=== PATIENT | female | born 1990 | race African-American/Black ===

== ENCOUNTER 2018-10-03 00:39 | Inpatient (IN) ==
[2018-10-03 00:59] LABS: URINE SOURCE VOIDED
[2018-10-03 01:04] LABS: BILIRUBIN URINE NEGATIVE (NEGATIVE); BLOOD URINE NEGATIVE (NEGATIVE); CLARITY CLEAR (CLEAR); COLOR YELLOW; GLUCOSE URINE NEGATIVE (NEGATIVE); KETONE URINE NEGATIVE (NEGATIVE); LEUKOCYTES URINE 1+ (NEGATIVE); NITRITE URINE NEGATIVE (NEGATIVE); PROTEIN URINE NEGATIVE (NEGATIVE); SP GRAVITY URINE 1.005; UROBILINOGEN URINE NORMAL
[2018-10-03 01:19] LABS: UR AMPHETAMINES QUAL NONE DETECTED (NONE DETECT); UR BARBITUATES QUAL NONE DETECTED (NONE DETECT); UR BENZODIAZEPIN QUAL NONE DETECTED (NONE DETECT); UR CANNABINOIDS QUAL NONE DETECTED (NONE DETECT); UR COCAINE QUAL NONE DETECTED (NONE DETECT); UR METHADONE QUAL NONE DETECTED (NONE DETECT); UR METHAMPHETAMINE QUAL NONE DETECTED (NONE DETECT); UR OPIATES QUAL NONE DETECTED (NONE DETECT); UR OXYCODONE QUAL NONE DETECTED (NONE DETECT); UR PCP QUAL NONE DETECTED (NONE DETECT); UR PROPOXYPHENE QUAL NONE DETECTED (NONE DETECT); UR TCA QUAL NONE DETECTED (NONE DETECT)
[2018-10-03] MEDS: STADOL IV PRN ×3 (02:05→09:14)
[2018-10-03] MEDS: LR 1,000 ML IV SCH ×5 (02:05→13:07)
--- NOTE | 2018-10-03 08:23 | HISTORY AND PHYSICAL ---
ADMITTING DIAGNOSIS: Thirty-nine week with prolonged latent phase. HISTORY OF PRESENT ILLNESS: Vivien is a 28-year-old primigravid black single female followed since 8 weeks gestation initially in [place] and transferring to [place] at 23 weeks gestation, presenting with onset of painful irregular contractions since about 2000 hours. 10/02/2018, without satisfactory response to hydration, rest and Stadol analgesia doses x2 overnight. Cervical exam has been compounded by low station, intolerance of exam, and difficulty palpating the cervix. heart rate tracing has been category 1 without deceleration. PAST MEDICAL/SOCIAL/FAMILY HISTORY: They are listed on the record. COURSE AND SUMMARY: GBS negative, B positive, rubella immune. Others negative including GC, Chlamydia, hepatitis B, RPR, and GBS present, Trichomonas treated with negative test of cure. PHYSICAL EXAMINATION: Exam at this time includes stable vitals and afebrile temperature. She is drowsy from a recent Stadol dose at 0500 hours. ASSESSMENT: 39 weeks, prolonged latent phase. PLAN: I discussed management options and the importance of spontaneous labor especially in a 1st without medical indications for augmentation. She is agreeable to light diet, ambulation and re-examination after 2 to 3 hours of ambulation.
[2018-10-03] MEDS ORDERED: KEFZOL 1 GM/D5W 1 GM/50 ML IVPB IV PRN (10:06)
[2018-10-03] MEDS ORDERED: REGLAN PO ONE (10:06)
[2018-10-03] MEDS ORDERED: PEPCID IV PRN (10:06)
[2018-10-03] MEDS ORDERED: ZOFRAN IV PRN (10:06)
[2018-10-03] MEDS ORDERED: TYLENOL PO PRN (10:06)
[2018-10-03] MEDS ORDERED: STADOL IV PRN (10:06)
[2018-10-03] MEDS ORDERED: AMPICILLIN 2 GM/NS 2 GM/100 ML IVPB IV ONE (10:06)
[2018-10-03] MEDS ORDERED: PEPCID PO PRN (10:06)
[2018-10-03] MEDS ORDERED: PEPCID PO ONE (10:06)
[2018-10-03] MEDS ORDERED: PITOCIN 30 UNITS/NS 30 UNIT/500 ML IV.SOLN IV SCH ×2 (10:15→18:15)
[2018-10-03] MEDS ORDERED: SODIUM CHLORIDE 0.9% INJ SCH (10:15)
--- NOTE | 2018-10-03 10:26 | OB/GYN PROGRESS NOTE ---
Progress Note OB - . Patient Problems: Current Active Problems Problem Status Onset Active labor at term Acute Group B streptococcal carriage complicating Acute OB Progress Note: Vital Signs - 24 hr 10/03/18 00:42 10/03/18 07:07 Temperature 97.6 F 96.5 F L Pulse Rate 74 71 Respiratory Rate 18 14 Blood Pressure 110/72 117/75 O2 Sat by Pulse Oximetry 100 100 Laboratory Results - last 24 hr 10/03/18 10/03/18 00:00 00:00 Urine Source VOIDED Urine Color YELLOW Urine Clarity CLEAR Urine pH 8.0 Ur Specific [place] 1.005 Urine Protein NEGATIVE Urine Ketones NEGATIVE Urine Blood NEGATIVE Urine Nitrite NEGATIVE Urine Bilirubin NEGATIVE Urine Urobilinogen NORMAL Urine WBC 1+ A Urine Glucose NEGATIVE Urine Opiates Screen NONE DETECTED Ur Oxycodone Screen NONE DETECTED Urine Methadone Screen NONE DETECTED U Propoxyphene Qual NONE DETECTED Ur Barbituates Screen NONE DETECTED Ur Tricyclics Screen NONE DETECTED Ur Phencyclidine Scrn NONE DETECTED Ur Amphetamines Screen NONE DETECTED U Methamphetamines Scrn NONE DETECTED U Benzodiazepines Scrn NONE DETECTED Urine Cocaine Screen NONE DETECTED U Cannabinoids Screen NONE DETECTED 28 yo G1 at 39+ weeks EGA now with progress into active phase at 5-6/-1 BOWI with cat I tracing and VSS AF Labor careplan discussed with pt and mother. UDS neg. CBC TxS pending A/P Begin Ampicillin prophylaxis Proceed with continuous lumbar epidural as desired Expect
[2018-10-03 10:45] LABS: BASO# 0.01 X1000 (0.0-0.2); BASO% 0.1 % (0.0-0.8); EOS# 0.03 X1000 (0.0-0.7); EOS% 0.4 % (0.0-10.0); HEMOGLOBIN 9.1 g/dL (12.0-16.0); IMM GRAN# 0.01 X1000 (0.0-0.04); IMM GRAN% 0.1 % (0.0-0.5); LYMPH# 2.07 X1000 (1.2-3.4); LYMPH% 24.9 % (20.5-51.1); MCH 22.6 PG (27-31); MCHC 29.4 g/dL (33-37); MCV 77.1 FL (81-99); MONO# 0.79 X1000 (0.11-0.59); MONO% 9.5 % (1.7-9.3); PLT 208 X1000 (130-400); RBC 4.02 XMIL (4.2-5.4); RDW 20.9 % (11.5-14.5); WBC 8.31 X1000 (4.8-10.8)
[2018-10-03] MEDS ORDERED: NAROPIN 0.2% INJ ONE (10:45)
--- NOTE | 2018-10-03 10:51 | HISTORY AND PHYSICAL ---
DIAGNOSIS: A 39-week with progress into active labor. HISTORY OF PRESENT ILLNESS: Vivien is a 28-year-old, primigravid, black, single female, admitted for observation after onset of painful prolonged labor prodrome, and now with dilation to 6 cm, 90%, -1 station, vertex presentation, membranes intact, with category 1 tracing, and continued irregular 2 to 5-minute pattern. course is notable for group B strep colonization, with onset of care at 8 weeks, and confirmation of dates with early ultrasound at that time. Labs include B positive, rubella immune, negative GC, chlamydia, hepatitis B, and RPR. PAST MEDICAL HISTORY: Unremarkable as summarized on the record. ALLERGIES: Negative. MEDICATIONS: Include only vitamins. PHYSICAL EXAMINATION: GENERAL: This is a healthy, black female. She is moderately uncomfortable with contractions, but has been ambulating successfully this morning, and requested an additional dose of Stadol just before being examined. VITAL SIGNS: Stable. Afebrile temperature. HEENT: Unremarkable. NECK: Supple. CHEST: Normal respiratory effort. CARDIAC: Regular rate and rhythm. BACK: No deformity. MUSCULOSKELETAL: Normal gait. NEUROLOGICAL: Intact. EXTREMITIES: Without clubbing, cyanosis, edema, or hyperreflexia. PELVIC: Normal EGBUS with light blood-stained mucus discharge. Cervix left deviated, approximately 5 to 6, 90%, -1 station. Membranes intact. ASSESSMENT: 1. Active labor at 39 weeks' gestation. 2. Group B strep positive. 3. Normal course. PLAN: 1. Proceed with continuous lumbar epidural and ampicillin prophylaxis. 2. Active management of labor, including artificial rupture of membranes as appropriate. 3. Expect spontaneous vaginal delivery.
[2018-10-03] MEDS ORDERED: FENTANYL-BUPIV-NS 2 MCG-0.1% 200 ML EPIDURAL SCH (11:00)
[2018-10-03] MEDS ORDERED: MINERAL OIL TOP ONE (11:54)
[2018-10-03] MEDS ORDERED: XYLOCAINE-MPF 1% INJ ONE (11:54)
[2018-10-03] MEDS: AMPICILLIN 1 GM/NS 1 GM/50 ML IVPB IV SCH ×2 (14:00→19:53)
[2018-10-03] MEDS ORDERED: M-M-R II VACCINE SUBQ ONE (18:01)
[2018-10-03] MEDS ORDERED: BOOSTRIX VACCINE IM ONE (18:01)
[2018-10-03] MEDS ORDERED: PERI MEDS (DERMOPLAST/NUPERCAINAL/TUCKS) MISC PRN (18:01)
[2018-10-03] MEDS ORDERED: MINERAL OIL PO PRN (18:01)
[2018-10-03] MEDS ORDERED: BENADRYL IV PRN (18:01)
[2018-10-03] MEDS ORDERED: XYLOCAINE-MPF 1% INJ PRN (18:01)
[2018-10-03] MEDS ORDERED: AMBIEN PO PRN (18:01)
[2018-10-03] MEDS ORDERED: CYTOTEC PO PRN (18:01)
[2018-10-03] MEDS ORDERED: HYDROXYZINE IM PRN (18:01)
[2018-10-03] MEDS ORDERED: BENADRYL PO PRN (18:01)
[2018-10-03] MEDS ORDERED: ATARAX PO PRN (18:01)
[2018-10-03] MEDS ORDERED: PITOCIN IM PRN (18:01)
[2018-10-03] MEDS ORDERED: PITOCIN 20 UNITS/NS 20 UNITS/1,000 ML IV.SOLN IV SCH (18:15)
[2018-10-03] MEDS: PERICOLACE PO SCH (20:54)
[2018-10-03] MEDS: NORCO-5 PO PRN (21:00)
[2018-10-03] MEDS: MOTRIN PO PRN (21:00)
[2018-10-04] MEDS: NORCO-5 PO PRN ×2 (03:13→09:00)
[2018-10-04 06:01] LABS: HEMATOCRIT 25.8 % (37.0-47.0); HEMOGLOBIN 7.5 g/dL (12.0-16.0); MCH 22.3 PG (27-31); MCHC 29.1 g/dL (33-37); MCV 76.8 FL (81-99); RBC 3.36 XMIL (4.2-5.4); RDW 20.1 % (11.5-14.5); WBC 20.59 X1000 (4.8-10.8)
--- NOTE | 2018-10-04 06:51 | OB/GYN PROGRESS NOTE ---
Progress Note OB - . Patient Problems: Current Active Problems Problem Status Onset Group B streptococcal carriage complicating Acute Active labor at term Acute OB Progress Note: Vital Signs - 24 hr 10/03/18 07:07 10/03/18 10:39 10/03/18 14:01 Temperature 96.5 F L 97.7 F 97.1 F L Pulse Rate 71 63 82 Respiratory Rate 14 16 18 Blood Pressure 117/75 114/75 127/79 Blood Pressure [Right Arm] O2 Sat by Pulse Oximetry 100 98 100 10/03/18 15:01 10/03/18 15:45 10/03/18 16:58 Temperature 98.2 F 99.3 F 99.4 F Pulse Rate 88 Respiratory Rate 20 Blood Pressure 120/77 Blood Pressure [Right Arm] O2 Sat by Pulse Oximetry 99 10/03/18 18:15 10/03/18 18:30 10/03/18 18:40 Temperature 99.0 F Pulse Rate 105 H 105 H 106 H Respiratory Rate 20 18 18 Blood Pressure Blood Pressure [Right Arm] 131/71 121/76 118/77 O2 Sat by Pulse Oximetry 100 100 100 10/03/18 18:50 10/03/18 19:00 10/03/18 19:10 Temperature Pulse Rate 109 H 98 H 96 H Respiratory Rate 18 18 18 Blood Pressure Blood Pressure [Right Arm] 112/73 110/70 114/76 O2 Sat by Pulse Oximetry 100 100 100 10/03/18 19:15 10/03/18 19:16 10/03/18 20:52 Temperature 97.3 F L Pulse Rate 91 H 88 104 H Respiratory Rate 18 18 Blood Pressure 120/79 135/60 Blood Pressure [Right Arm] O2 Sat by Pulse Oximetry 100 100 98 10/04/18 00:30 10/04/18 05:19 Temperature 98.2 F 97.9 F Pulse Rate 107 H 79 Respiratory Rate 18 18 Blood Pressure 130/76 110/65 Blood Pressure [Right Arm] O2 Sat by Pulse Oximetry 100 Laboratory Results - last 24 hr 10/03/18 10/03/18 10/04/18 02:05 02:05 05:41 WBC 8.31 20.59 H D RBC 4.02 L 3.36 L Hgb 9.1 L 7.5 L D Hct 31.0 L 25.8 L MCV 77.1 L 76.8 L MCH 22.6 L 22.3 L MCHC 29.4 L 29.1 L RDW Std Deviation 20.9 H 20.1 H Plt Count 208 171 MPV Not Reportable 12.0 H Immature Gran % (Auto) 0.1 Neut % (Auto) 65.0 Lymph % (Auto) 24.9 [place] % (Auto) 9.5 H Eos % (Auto) 0.4 Baso % (Auto) 0.1 Immature Gran # (Auto) 0.01 Neut # (Auto) 5.40 Lymph # (Auto) 2.07 [place] # (Auto) 0.79 H Eos # (Auto) 0.03 Baso # (Auto) 0.01 RPR NON-REACTIVE No complaints, denies PIH/Orthostatic symptoms A&O nAD CTAB RRR S/ND/NT Fundus firm Normal lochia no C/C/E PPD 1 s/p doing well - ambulate - post care - anticipate D/C home Monday.
[2018-10-04] MEDS: MOTRIN PO PRN (09:00)
--- NOTE | 2018-10-04 18:33 | OPERATIVE NOTE ---
PROCEDURE DATE : 10/03/2018 PROCEDURE: Vaginal delivery. SURGEON: Dr. Rohan Aden. GRAIN SPOUTER: None. DESCRIPTION OF PROCEDURE: At time of patient's delivery, there was a viable 39-week fetus weighing 7 pounds 1 ounce with scores of 9 and 10 at 1 and 5 minutes respectively. The vertex was delivered spontaneously over an intact perineum. No nuchal cord was identified. The anterior shoulder was delivered atraumatically by maternal expulsive forces with the assistance of downward traction. The posterior shoulder was delivered with maternal expulsive efforts and upward traction. The remainder of the fetus delivered spontaneously. Upon delivery, the cord was clamped and cut. The was then placed on the maternal abdomen with assessments being performed by a waiting inpatient care manager rn staff. Cord blood was obtained. The placenta delivered spontaneously, intact with a 3-vessel cord at the time. To enhance uterine contractions, 20 units of IV oxytocin were administered. The cervix, vagina and peritoneum were inspected for lacerations. A 2nd-degree perineum laceration was identified, and 1% lidocaine was injected, and the laceration was repaired using 2-0 Vicryl in a running locked fashion to reapproximate the laceration in layers. Some 2-0 Chromic was also used to obtain hemostasis. Good hemostasis was confirmed.
[2018-10-04] MEDS: PERICOLACE PO SCH (20:08)
[2018-10-05 07:37] VITALS: BP 124/84
--- NOTE | 2018-10-05 08:27 | OB/GYN PROGRESS NOTE ---
Progress Note OB - . Patient Problems: Current Active Problems Problem Status Onset Normal labor and delivery Acute Anemia of mother in , delivered with condition Acute Group B streptococcal carriage complicating Acute Active labor at term Acute OB Progress Note: Vital Signs - 24 hr 10/04/18 08:41 10/04/18 11:46 10/04/18 16:30 Temperature 97.9 F 97.1 F L 97.8 F Pulse Rate 83 89 101 H Respiratory Rate 16 16 16 Blood Pressure 138/74 124/71 110/77 O2 Sat by Pulse Oximetry 100 98 100 10/04/18 20:07 10/05/18 07:30 Temperature 97.8 F 98.1 F Pulse Rate 89 80 Respiratory Rate 18 20 Blood Pressure 121/75 124/84 O2 Sat by Pulse Oximetry 99 28 yo now PPD#2 doing well, supplementing , with no presyncope and no c/o heavy lochia, clots, dysuria, perineal pain, breast pain, or depressed mood. She notes epidoes of left leg numbness without pain or weakness, "like it's going to sleep" EXAM NAD VSS AF HEENT NL Chest Nl resp effort CVS RRR Abd soft, nontender, firm nontender fundus U-0 Ext no CCE or calf tenderness A/P as above Full discharge precautions, limitations, medications, return visit 6 weeks, and indications for earlier return such as unrelieved pain, heavy lochia, breast pain, fever, or depressed mood discussed and understood.
--- NOTE | 2018-10-05 21:44 | DISCHARGE SUMMARY ---
ADMISSION DATE: 10/03/2018 DISCHARGE DATE: 10/05/2018 ADMITTING DIAGNOSIS: 39 week with progress into active labor. FINAL DISCHARGE DIAGNOSES: 1. Thirty-nine week , delivered, with obstetric complications. 2. Group B strep colonization, without sequelae. 3. Anemia of . 4. Persistent occiput posterior delivery. 5. Second-degree perineal laceration and repair. HPI: Vivien is a 28-year-old 1, now para 1-0-0-1 black single female followed in [place] and transferring to the care of Dr. Aden at approximately 24 weeks with antepartum course notable for anemia of , group B strep colonization and trichomonas with negative test of cure. Full details of the past social, family, medical histories and course are listed on the record. ALLERGIES: Negative. MEDICATIONS: Included only vitamins. HOSPITAL COURSE: Vivien progressed into active phase labor after a period of observation and proceeded along a normal labor curve to complete dilation and successful uncomplicated vaginal delivery. , she experienced no difficulties such as breast pain, heavy lochia, unrelieved perineal pain. She noticed episodes of her left leg "going to sleep" without weakness. Examination at discharge was benign with fundus firm at the umbilicus. Admitting hemoglobin was 9.1. Discharge hemoglobin 7.5. She denied presyncope with ambulation. DISPOSITION: Vivien will be discharged home today day 2 to return to the office in 6 weeks or at any time for heavy vaginal bleeding, unrelieved pain, breast pain, extremity pain or depressed mood. MEDICATIONS: Would include vitamins, ibuprofen 800 mg and continuation of iron twice a day. She will call to schedule a [address] Aden and expressed good understanding of the discharge precautions and limitations as discussed.
== END 2018-10-05 11:00 | disposition home or self-care (01) | DRG 807 ==
LOC: P.NBC 00:39 → P.LD 00:41
PROVIDERS: ADMIT Obstetrics & Gynecology; ATTEND Obstetrics & Gynecology
CPT/HCPCS: 80104; 80301; 80305; 81003; 85025; 85027; 86592; 90715; A9270; G0431; G0434; G0477; J0290; J0595; J2590; J2795; J7120